=== PATIENT | female | born 1955 | race Caucasian/White ===

== ENCOUNTER → 2017-10-01 08:46 | Outpatient (POV) | payer BC, SELFPAY | PROVIDERS: Family Provider Family Medicine; PCP Family Medicine; Visit Provider Internal Medicine | DX: Z00.00 Encounter for general adult medical examination without abnormal findings (principal) ==

== ENCOUNTER → 2017-10-01 11:01 | Outpatient (CLI) | payer BC, SELFPAY | PROVIDERS: PCP Family Medicine; Visit Provider Internal Medicine | DX: J15.9 Unspecified bacterial pneumonia (principal); R06.02 Shortness of breath | CPT/HCPCS: 36415 ==

== ENCOUNTER → 2017-12-03 09:59 | Outpatient (CLI) | payer BC, SELFPAY ==
[2017-12-03 11:05] VITALS: PULSE 62; PULSE 65
[2017-12-03 11:35] VITALS: BP 122/70; BP 130/85; PULSE 63; PULSE 79; RESP 18; RESP 20; O2SAT 100; O2SAT 98
== END ==
PROVIDERS: Family Provider Family Medicine; PCP Family Medicine; Visit Provider Internal Medicine
DX: J15.9 Unspecified bacterial pneumonia (principal); R06.02 Shortness of breath
CPT/HCPCS: 94060; 94618; 94640; 94726; 94729

== ENCOUNTER → 2018-01-22 11:04 | Outpatient (POV) | payer BC, SELFPAY | PROVIDERS: Family Provider Family Medicine; PCP Family Medicine; Visit Provider Internal Medicine | DX: Z00.00 Encounter for general adult medical examination without abnormal findings (principal) ==

== ENCOUNTER → 2018-01-30 15:01 | Outpatient (CLI) | payer BC, SELFPAY ==
--- NOTE | 2018-01-30 15:06 | CT_ITS ---
CT chest wo con HISTORY: ITS.REASON: BACTERIAL PNEUMONIA,BRONCHOLITHIASIS ORDERING PHYSICIAN: Bg Jeffery MD PATIENT AGE: 62 years COMPARISON: 08/10/2017 Technique: Axial images obtained. Sagittal and coronal reformatted images are also generated and reviewed. All CT scans at the facility use one or more dose reduction, viz: automated exposure control; ma/kV adjustment per patient size (including targeted exams where dose is matched to indication; i.e. head); or iterative reconstruction technique. FINDINGS: No mediastinal or hilar mass or adenopathy. There are coronary artery calcification with normal heart size and no pericardial thickening. Calcified nodes are present in the mediastinum and sushila. There are few small axillary nodes which are nonspecific. There are scattered calcified nodules present consistent granulomas similar to the previous exam. Calcified granuloma in the right infrahilar region posteriorly once again noted measuring 11 x 6 mm. The postobstructive changes from this granuloma have improved. Scattered areas of parenchymal fibrosis/scarring also noted. Previously there was a bandlike area of increased density in the right lower lobe posterior laterally. This is decreased in size and was likely due to an area of pneumonia with postinflammatory scarring. A new nodular opacity is present in the lingula at 6 mm. This could be due to an area of postinflammatory fibrosis. Developing nodule cannot be excluded and follow-up is suggested No central obstructing lesions are evident. No acute bony anomalies. Right hemidiaphragm is somewhat elevated as before. Isodensity in the central aspect of the right kidney consistent with a parapelvic renal cyst IMPRESSION: 1. 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 2. Bandlike area of increased density in the right lower lobe has been removed some residual postinflammatory scarring at this area 3. New 6 mm nodular opacity in the lingula possibly due to postinflammatory fibrosis but not apparent on the previous exam. 6 month follow-up suggested
== END ==
PROVIDERS: Family Provider Family Medicine; PCP Family Medicine; Visit Provider Internal Medicine
DX: J15.9 Unspecified bacterial pneumonia (principal); J98.09 Other diseases of bronchus, not elsewhere classified
CPT/HCPCS: 71250

== ENCOUNTER → 2021-03-03 12:36 | Outpatient (CLI) | payer MEDICARE, BC, SELFPAY ==
--- NOTE | 2021-03-03 12:52 | XR_ITS ---
PROCEDURE: XR DEXA AXIAL SKELETON CLINICAL HISTORY: POST MENOPAUSAL COMPARISON: No exams were available for comparison FINDINGS: The right hip BMD is 0.732 with a T-score of -1.1. The left hip BMD is 0.750 with a T-score of -0.9. The lumbar spine BMD is 1.143 with a T-score of -0.9. IMPRESSION: This patient is considered osteopenic according to the World Health Organization criteria. Bone density is between 10 and 25 percent below young normal. Fracture risk is moderate. Treatment is advised. Based on these results a follow-up exam is recommended in 2 year. Dictated by: Xavi Graham MD 03/03/2021 18:55 Xavi Graham MD in [facility] 03/03/2021 18:55
--- NOTE | 2021-03-03 12:52 | MM_ITS ---
PROCEDURE INFORMATION: Exam: MG Screening 3D Mammography Exam date and time: 03/03/2021 12:52 PM Age: 65 years old Clinical indication: Encounter for screening mammogram for malignant neoplasm of breast TECHNIQUE: Imaging protocol: Screening tomosynthesis and 2D mammography including computer-aided detection (CAD) when performed. COMPARISON: 1. MG DMSB DIG MAMM-SCREEN ALESSANDRA W/CAD 07/31/2017 10:31 AM 2. MG DMSB DIG MAMM-SCREEN ALESSANDRA 06/14/2015 2:30 PM FINDINGS: MAMMOGRAPHY: Breast composition: The breasts are almost entirely fatty. Mass: None. Architectural distortion: None. Calcifications: No suspicious calcifications. Asymmetric density: None. Skin thickening: None. Axillary adenopathy: None. IMPRESSION: No mammographic evidence of malignancy. Annual screening is recommended unless otherwise clinically indicated. ASSESSMENT: BI-RADS Category 1: Negative
== END ==
PROVIDERS: PCP Family Medicine; Visit Provider Family Medicine
DX: Z12.31 Encounter for screening mammogram for malignant neoplasm of breast (principal); Z78.0 Asymptomatic menopausal state; Z00.00 Encounter for general adult medical examination without abnormal findings
CPT/HCPCS: 77063; 77067; 77080

== ENCOUNTER → 2021-08-18 09:56 | Outpatient (CLI) | payer MEDICARE, BC, SELFPAY | PROVIDERS: PCP Family Medicine; Visit Provider Nurse Practitioner | DX: Z20.822 Contact with and (suspected) exposure to COVID-19 (principal) | CPT/HCPCS: C9803; U0003; U0005 ==